=== PATIENT | female | born 1950 | race Caucasian/White ===

== ENCOUNTER 2016-06-24 20:10 | Emergency (ER) | payer MEDICARE, OTHER ==
[2016-06-24 20:51] VITALS: O2SAT 96
[2016-06-24] MEDS ORDERED: SODIUM CHLORIDE 0.9% 1000ML 1,000 ML IVS ONE (20:55)
[2016-06-24] MEDS ORDERED: LIDOCAINE VIS-MYLANTA 30 ML UD PO ONE (20:56)
[2016-06-24] MEDS ORDERED: ONDANSETRON ODT 8 MG TAB SL SCH (21:00)
--- NOTE | 2016-06-24 21:25 | RAD ---
EXAM: Abdomen Series CLINICAL INDICATION: 66-year-old female with nausea and vomiting. TECHNIQUE:Single view, PA chest was obtained.Two views of the abdomen were obtained in upright and supine positioning. COMPARISON: None. FINDINGS: Chest: Unremarkable cardiac and mediastinal silhouette. Heart size is normal. Lungs are clear without focal opacity, pneumothorax or pleural effusions. The visualized bones reveal degenerative change. Abdomen:Gas is seen within normal caliber small and large bowel. Few nonspecific central gas-filled small bowel loops. No free air is identified.There are no abnormal calcifications. Calcification within the pelvis suggestive of phleboliths. The osseous structures revealed degenerative change.The lung bases are clear. IMPRESSION:1. No acute cardiopulmonary abnormalities.2. Nonspecific abdominal bowel gas pattern. Electronically signed by: Gisella Christianson MD 06/24/2016 9:24 PM FIRE ENGINE OPERATOR
[2016-06-24] MEDS ORDERED: POTASSIUM CHLORIDE ELIXIR 20 MEQ/15 ML UD PO ONE (21:26)
[2016-06-24] MEDS ORDERED: SOTALOL 80 MG TAB PO ONE (21:35)
[2016-06-24] MEDS ORDERED: diltiaZEM HCL CD 180 MG CAP PO ONE (21:36)
[2016-06-24] MEDS ORDERED: DIPHENOXYLATE HCL/ATROPINE 2.5 MG TAB PO ONE ×2 (22:30→22:34)
--- NOTE | 2016-06-24 23:37 | ED.PDOC ---
History of Present Illness - General Chief Complaint: Abdominal Pain Stated Complaint: Abdominal pain Time Seen by Provider: 06/24/16 20:18 Source: patient Exam Limitations: no limitations - History of Present Illness Initial Comments: The patient is a 66-year-old female presenting to the emergency room secondary to nausea and vomiting for the last 24 hours along with several episodes of diarrhea. No blood in either and no bile in the vomitus. Questionable low-grade fevers. Mild to moderate abdominal cramping. No syncope or near-syncope. No chest pain. No rash. Timing/Duration: 24 hours Severity: moderate Improving Factors: medication Worsening Factors: nothing Associated Symptoms: loss of appetite, malaise, nausea/vomiting Allergies/Adverse Reactions: Allergies Sulfa Antibiotics Allergy (Verified 12/14/13 00:38) Home Medications: Ambulatory Orders Glipizide 10 mg PO BID 12/14/13 Hydrochlorothiazide 25 mg PO DAILY 12/14/13 Levothyroxine Sodium 75 mg PO DAILY 12/14/13 Metformin HCl 1,000 mg PO BID 12/14/13 Aspirin [Aspirin Adult Low Dose] 81 mg PO DAILY 06/24/16 Calcium 600 mg PO DAILY 06/24/16 Linagliptin [Tradjenta] 0 mg PO QD 06/24/16 Losartan Potassium 50 mg PO DAILY 06/24/16 Multiple Vitamins W/ Minerals [Centrum Silver] 1 tab PO DAILY 06/24/16 Ondansetron [Zofran Odt] 4 mg PO Q4H PRN #10 tab 06/24/16 Review of Systems - Review of Systems Constitutional: States: malaise EENTM: States: no symptoms reported Respiratory: States: no symptoms reported Cardiology: States: no symptoms reported Gastrointestinal/Abdominal: States: abdominal pain, diarrhea, nausea, vomiting Genitourinary: States: no symptoms reported Musculoskeletal: States: no symptoms reported Skin: States: no symptoms reported Neurological: States: no symptoms reported All other Systems: No Change from Baseline Past Medical History (General) - Patient Medical History Hx Seizures: No Hx Stroke: No Hx Dementia: No Hx Asthma: No Hx of COPD: No Hx Cardiac Disorders: No Hx Congestive Heart Failure: No Hx Pacemaker: No Hx Hypertension: No Hx Thyroid Disease: Yes Hx Diabetes: Yes Hx Gastroesophageal Reflux: No Hx Renal Disease: Yes - Chronic renal disease Hx Cancer: No Hx of HIV: No Hx Hepatitis C: No Hx MRSA: No Surgical History: appendectomy, cholecystectomy, Hysterectomy - Vaccination History Hx Tetanus, Diphtheria Vaccination: Yes Hx Influenza Vaccination: Yes Hx Pneumococcal Vaccination: Yes Immunizations Up to Date: Yes - Social History Hx Tobacco Use: No Hx Alcohol Use: No Hx Substance Use: No Hx Substance Use Treatment: No Hx Depression: No - Activities of Daily Living Hospice Agency (if applicable):: None - Female History Patient is a Female of Child Bearing Age (10 -59 yrs old): No Family Medical History - Family History Mother Family History: Unknown Physical Exam - Physical Exam General Appearance: Alert, No apparent distress Eye Exam: bilateral normal Ears, Nose, Throat: normal ENT inspection, normal pharynx Neck: non-tender, full range of motion, supple, normal inspection Respiratory: chest non-tender, lungs clear, normal breath sounds, no respiratory distress, no accessory muscle use Cardiovascular/Chest: normal peripheral pulses, regular rate, rhythm, no edema Peripheral Pulses: radial,right: 2+, radial,left: 2+ Gastrointestinal/Abdominal: non tender, soft Rectal Exam: deferred Back Exam: normal inspection, no CVA tenderness, no vertebral tenderness Extremity: normal range of motion, non-tender, normal inspection, no pedal edema , normal capillary refill Neurologic: alert, normal mood/affect, oriented x 3 Skin Exam: normal color Comments: Vital Signs - 24 hr 06/24/16 20:45 Temperature 98.1 F Pulse Rate [ 84 Right Radial] Respiratory 20 Rate Blood Pressure 153/92 [Left Arm] O2 Sat by Pulse 96 Oximetry Progress - Progress Progress: 06/24/16 23:38 the patient is a 66-year-old female presenting to the emergency room with symptoms and clinical picture consistent with gastroenteritis likely of viral origin. The patient was rehydrated for mild to moderate dehydration with a liter of saline. Laboratory work is reassuring as is the x-ray. She has responded well to Zofran. She will be written for a prescription for Zofran to help control any future nausea and vomiting. She needs to keep herself well hydrated. She needs to return to the emergency room for any acute worsening. She needs to follow up with her primary care doctor before the weekend otherwise. She does have some mild hypokalemia and was given a dose of potassium elixir here today. This does need to be followed over the coming weeks. she has been instructed to take an additional dose of potassium a day with food over the next week. 1 tablet of Imodium can be used daily if needed to control diarrhea. Avoid constipation. We were unable to obtain a urinalysis here today. One should be performed at her primary care doctor's office at the follow-up appointment. She is not currently having urinary symptoms. 06/24/16 23:42 - Results/Orders Results/Orders: 06/24/16 21:00 Ondansetron Odt [Zofran ODT] 4 mg SL ONCE 06/24/16 22:26 UA [URINALYSIS] Stat Laboratory Results - last 24 hr 06/24/16 21:05 WBC 4.7 L RBC 4.98 Hgb 14.2 Hct 43.0 MCV 86.3 MCH 28.6 MCHC 33.2 RDW 15.2 H Plt Count 183 MPV 7.0 L Absolute Neuts (auto) 3.50 Absolute Lymphs (auto) 0.70 L Absolute Monos (auto) 0.50 Absolute Eos (auto) 0.00 Absolute Basos (auto) 0.00 Neutrophils % 74.6 Lymphocytes % 14.8 L Monocytes % 9.8 H Eosinophils % 0.4 L Basophils % 0.4 Sodium 133 L Potassium 2.9 L Chloride 97 L Carbon Dioxide 27 Anion Gap 11.9 L BUN 19 H Creatinine 0.98 BUN/Creatinine Ratio 19.4 Random Glucose 173 H Serum Osmolality 272.8 L Calcium 8.4 Total Bilirubin 1.0 AST 40 ALT 29 Alkaline Phosphatase 64 Creatine Kinase 42 CK-MB (CK-2) 0.8 CK-MB (CK-2) % Not Reportable Troponin I < 0.02 Serum Total Protein 7.8 Albumin 3.7 Globulin 4.1 H Albumin/Globulin Ratio 0.9 L Amylase 44 Lipase 49 abdominal series appears benign. Departure - Departure Clinical Impression: Gastroenteritis, Hypokalemia, Dehydration, mild Disposition: Discharge to Home or Self Care Departure Forms: ED Discharge - Pt. Copy, Patient Portal Self Enrollment Instructions: DI for Viral Gastroenteritis -- Adult, DI for Hypokalemia Diet: bland diet Activity: increase activity as tolerated Referrals: Ivan Rasheed MD [Primary Care Provider] - 1-5 Days Prescriptions: Ondansetron [Zofran Odt] 4 mg PO Q4H PRN #10 tab PRN Reason: Vomiting Home Medications: Ambulatory Orders Glipizide 10 mg PO BID 12/14/13 Hydrochlorothiazide 25 mg PO DAILY 12/14/13 Levothyroxine Sodium 75 mg PO DAILY 12/14/13 Metformin HCl 1,000 mg PO BID 12/14/13 Aspirin [Aspirin Adult Low Dose] 81 mg PO DAILY 06/24/16 Calcium 600 mg PO DAILY 06/24/16 Linagliptin [Tradjenta] 0 mg PO QD 06/24/16 Losartan Potassium 50 mg PO DAILY 06/24/16 Multiple Vitamins W/ Minerals [Centrum Silver] 1 tab PO DAILY 06/24/16 Ondansetron [Zofran Odt] 4 mg PO Q4H PRN #10 tab 06/24/16 Additional Instructions: the patient is a 66-year-old female presenting to the emergency room with symptoms and clinical picture consistent with gastroenteritis likely of viral origin. The patient was rehydrated for mild to moderate dehydration with a liter of saline. Laboratory work is reassuring as is the x-ray. She has responded well to Zofran. She will be written for a prescription for Zofran to help control any future nausea and vomiting. She needs to keep herself well hydrated. She needs to return to the emergency room for any acute worsening. She needs to follow up with her primary care doctor before the weekend otherwise. She does have some mild hypokalemia and was given a dose of potassium elixir here today. This does need to be followed over the coming weeks. she has been instructed to take an additional dose of potassium a day with food over the next week. 1 tablet of Imodium can be used daily if needed to control diarrhea. Avoid constipation. We were unable to obtain a urinalysis here today. One should be performed at her primary care doctor's office at the follow-up appointment. She is not currently having urinary symptoms.
[2016-06-24] MEDS ORDERED: cefTRIAXone SODIUM 1 GM in SODIUM CHL 0.9% 50ML MIN-BAG+ 50 ML IVPB ONE (23:59)
[2016-06-25] MEDS ORDERED: cefTRIAXone SODIUM 1 GM VIAL ONE (00:03)
[2016-06-25] MEDS ORDERED: SODIUM CHL 0.9% 50ML MIN-BAG+ 50 ML IVPB ONE (00:03)
[2016-06-25 00:47] VITALS: BP 132/75; TEMP 98.2
== END 2016-06-25 00:45 | disposition home or self-care (01) ==
LOC: ER 20:10
DX: K52.9 Noninfective gastroenteritis and colitis, unspecified (principal); E87.6 Hypokalemia; E86.0 Dehydration; I12.9 Hypertensive chronic kidney disease with stage 1 through stage 4 chronic kidney disease, or unspecified chronic kidney disease; E11.22 Type 2 diabetes mellitus with diabetic chronic kidney disease; N18.9 Chronic kidney disease, unspecified; Z79.899 Other long term (current) drug therapy; Z79.82 Long term (current) use of aspirin; Z88.2 Allergy status to sulfonamides
CPT/HCPCS: 36415; 74020; 80053; 81001; 82150; 82550; 82553; 83690; 84484; 85025; 87086; 87804; J0696; J7030; J7050

== ENCOUNTER → 2016-08-28 | Outpatient (CLI) | payer MEDICARE, OTHER | END | disposition home or self-care (01) | LOC: GMAB 10:23 | PROVIDERS: ATTEND Family Medicine | DX: E03.9 Hypothyroidism, unspecified (principal) ==

== ENCOUNTER → 2016-11-18 | Outpatient (CLI) | payer MEDICARE, OTHER | END | disposition home or self-care (01) | LOC: LAB.REF 06:54 | PROVIDERS: ATTEND Internal Medicine Nephrology | DX: N17.9 Acute kidney failure, unspecified (principal); I10 Essential (primary) hypertension; E11.22 Type 2 diabetes mellitus with diabetic chronic kidney disease; N39.0 Urinary tract infection, site not specified ==

== ENCOUNTER → 2016-12-19 | Outpatient (CLI) | payer MEDICARE, OTHER ==
--- NOTE | 2016-12-19 17:10 | RAD ---
EXAM DESCRIPTION: Foot,Left 3 Views CLINICAL HISTORY: 66 years, Female, FOOT PAIN COMPARISON: None TECHNIQUE: AP, lateral, and oblique views of the left foot FINDINGS: Mild hallux valgus of the great toe and degenerative changes at the metatarsal head is noted. No fracture or dislocation is seen. Calcaneal spurring is present. Degenerative spurring along the dorsum of the foot at the tarsal metatarsal articulation is evident. An accessory ossicle at the lateral margin of the cuboid is noted. No fracture or deformity is seen. IMPRESSION: Modest degenerative changes with no acute injury noted. Electronically signed by: Eben Voss MD 12/19/2016 5:09 PM CDT
== END ==
LOC: RAD 07:33
PROVIDERS: ATTEND Orthopaedic Surgery
DX: M79.672 Pain in left foot (principal)

== ENCOUNTER → 2016-12-31 | Outpatient (CLI) | payer MEDICARE, OTHER | END | disposition home or self-care (01) | LOC: GMAB 16:46 | PROVIDERS: ATTEND Family Medicine | DX: N30.00 Acute cystitis without hematuria (principal) ==

== ENCOUNTER → 2017-01-14 | Outpatient (CLI) | payer MEDICARE, OTHER | LOC: GMAB 14:30 | PROVIDERS: ATTEND Family Medicine | DX: N30.00 Acute cystitis without hematuria (principal) ==

== ENCOUNTER → 2017-02-24 | Outpatient (CLI) | payer MEDICARE, OTHER ==
--- NOTE | 2017-02-24 11:33 | RAD ---
EXAM DESCRIPTION: Hip,Right 2 Views CLINICAL HISTORY: 67 years Female, PAIN COMPARISON: None. FINDINGS: 2 views of the right hip show no acute fracture or malalignment. The right hip joint space is fairly well-maintained. Degenerative calcifications arise from the posterior margin of the right acetabulum and also the greater trochanter. Enthesophytes arise from the right iliac crest. There are degenerative changes in the lower lumbar spine at several levels. IMPRESSION: Degenerative changes in the lumbar spine and right hip, but no acute right hip abnormality. Electronically signed by: Ghulam Hinkle MD 02/24/2017 11:32 AM CDT
--- NOTE | 2017-02-24 11:33 | RAD ---
EXAM DESCRIPTION: Pelvis CLINICAL HISTORY: 67 years Female, PAIN COMPARISON: None. FINDINGS: Single AP view the pelvis shows no displaced pelvic fracture. The hip and sacroiliac joint spaces are fairly well-maintained. Degenerative calcifications arise from the iliac crests and greater trochanters. There are mild degenerative changes in the lumbar spine at L4-5. IMPRESSION: Degenerative changes in the pelvis and lower lumbar spine, but no acute abnormality. Electronically signed by: Ghulam Hinkle MD 02/24/2017 11:31 AM CDT
== END | disposition home or self-care (01) ==
LOC: RAD 07:43
PROVIDERS: ATTEND Orthopaedic Surgery
DX: M25.551 Pain in right hip (principal)

== ENCOUNTER → 2017-05-22 | Outpatient (CLI) | payer MEDICARE, OTHER | END | disposition home or self-care (01) | LOC: GMAJS 11:03 | PROVIDERS: ATTEND Physician Assistant | DX: N30.00 Acute cystitis without hematuria (principal) ==

== ENCOUNTER → 2017-09-04 | Outpatient (CLI) | payer MEDICARE, OTHER | LOC: GMAB 10:26 | PROVIDERS: ATTEND Family Medicine | DX: E03.9 Hypothyroidism, unspecified (principal) ==

== ENCOUNTER → 2017-09-11 | Outpatient (CLI) | payer MEDICARE, OTHER ==
--- NOTE | 2017-09-11 15:48 | RAD ---
EXAM DESCRIPTION: Foot,Left 3 Views CLINICAL HISTORY: 67 years, Female, FOOT PAIN COMPARISON: Previous study December 19, 2016 TECHNIQUE: AP, lateral, and oblique views of the left foot FINDINGS: Metatarsus primus varus is seen with hallux valgus resulting in osseous bunion deformity. Degenerative narrowing at the first metatarsophalangeal joint with mild degenerative narrowing of the joints of toes. Sclerotic changes at the tarsometatarsal joints are consistent with degenerative changes. No definite subluxation or widening to suggest neuropathic joint. Gout might be considered with this appearance although it may similarly be degenerative. Lateral view shows no fracture of the talus or calcaneus. Large dorsal and plantar calcaneal enthesophytes are present. Degenerative spurring is seen at the dorsal midfoot. IMPRESSION: Degenerative changes as described. Electronically signed by: Tucker Tony MD 09/11/2017 3:47 PM CDT
== END ==
LOC: RAD 08:21
PROVIDERS: ATTEND Orthopaedic Surgery
DX: M79.672 Pain in left foot (principal)

== ENCOUNTER → 2017-09-12 | Outpatient (CLI) | payer MEDICARE, OTHER ==
--- NOTE | 2017-09-12 12:52 | MRI ---
MRI left foot without contrast INDICATION: Rodriguez's neuroma TECHNIQUE: Noncontrast MR imaging left foot FINDINGS: There is osteoarthrosis in the midfoot centered along the TMT joints especially second third and fourth. Minimal osteoarthrosis of the first MTP joint. There is cystic change along the bunion area first metatarsal. Lisfranc ligament complex appears intact. The marker indicating the area of symptoms is situated over the second interspace. There is mild soft tissue thickening in this area. However this is similar to the other interspaces. No well-defined neuroma is noted. There is patchy edema proximal second interspace in the interosseous region very nonspecific. No osseous destructive process or fracture. Intravenous contrast may be useful to assess for enhancement especially given the edema proximal to the second interspace in the symptomatic area reference series 701 image 23 as a small neuroma is difficult to exclude within the edema. IMPRESSION: Edema most pronounced proximal to the second interspace between the second and third metatarsals in the symptomatic area difficult to exclude underlying small neuroma consider intravenous contrast Multifocal osteoarthrosis throughout the TMT joints Small bunion with cystic change first metatarsal Electronically signed by: Rene Gunn MD 09/12/2017 12:50 PM CDT
== END ==
LOC: MRI 07:42
PROVIDERS: ATTEND Orthopaedic Surgery
DX: G57.62 Lesion of plantar nerve, left lower limb (principal); M19.072 Primary osteoarthritis, left ankle and foot; M21.612 Bunion of left foot

== ENCOUNTER → 2017-11-25 | Outpatient (CLI) | payer MEDICARE, OTHER | LOC: GMAJS 12:38 | PROVIDERS: ATTEND Physician Assistant | DX: N30.00 Acute cystitis without hematuria (principal) ==

== ENCOUNTER → 2017-12-09 | Outpatient (CLI) | payer MEDICARE, OTHER | LOC: GMAE 11:04 | PROVIDERS: ATTEND Family Medicine | DX: E03.9 Hypothyroidism, unspecified (principal) ==

== ENCOUNTER → 2018-01-14 | Outpatient (CLI) | payer MEDICARE, OTHER | LOC: GMATM 17:30 | PROVIDERS: ATTEND Nurse Practitioner Family | DX: D51.9 Vitamin B12 deficiency anemia, unspecified (principal); E55.9 Vitamin D deficiency, unspecified; N39.0 Urinary tract infection, site not specified; R53.83 Other fatigue ==

== ENCOUNTER → 2018-01-16 | Outpatient (CLI) | payer MEDICARE, OTHER ==
--- NOTE | 2018-01-16 08:28 | RAD ---
EXAM DESCRIPTION: Hip,Right 2 Views (accession [id number]), Pelvis (accession [id number]) CLINICAL HISTORY: 67 years, Female, PAIN IN RIGHT HIP COMPARISON: Previous x-rays of the pelvis and right hip from February 24, 2017 TECHNIQUE: AP and frog leg lateral views of the hip FINDINGS: Pelvis Bones of the pelvic ring appear intact. Degenerative changes are seen in the lower L-spine and at the SI joints. Mild medial hip joint space narrowing bilaterally. Enthesopathy is seen at the greater trochanter of the proximal left femur more than the right. No femoral fracture or hip dislocation. Right hip No fracture. No dislocation. Normal bony mineralization. Mild medial hip joint space narrowing. Mild spurring at the lateral acetabulum and at the medial femoral head neck junction. Compared to previous study February 24, 2017, no change is seen. IMPRESSION: Negative for fracture or dislocation. Electronically signed by: Tucker Tony MD 01/16/2018 8:27 AM CDT
--- NOTE | 2018-01-16 08:28 | RAD ---
EXAM DESCRIPTION: Hip,Right 2 Views (accession [id number]), Pelvis (accession [id number]) CLINICAL HISTORY: 67 years, Female, PAIN IN RIGHT HIP COMPARISON: Previous x-rays of the pelvis and right hip from February 24, 2017 TECHNIQUE: AP and frog leg lateral views of the hip FINDINGS: Pelvis Bones of the pelvic ring appear intact. Degenerative changes are seen in the lower L-spine and at the SI joints. Mild medial hip joint space narrowing bilaterally. Enthesopathy is seen at the greater trochanter of the proximal left femur more than the right. No femoral fracture or hip dislocation. Right hip No fracture. No dislocation. Normal bony mineralization. Mild medial hip joint space narrowing. Mild spurring at the lateral acetabulum and at the medial femoral head neck junction. Compared to previous study February 24, 2017, no change is seen. IMPRESSION: Negative for fracture or dislocation. Electronically signed by: Tucker Tony MD 01/16/2018 8:27 AM CDT
--- NOTE | 2018-01-16 15:22 | MRI ---
EXAM DESCRIPTION: Hip,Right CLINICAL HISTORY: 67 years Female, PAIN IN RIGHT HIP COMPARISON: None. TECHNIQUE: Noncontrast multiplanar multisequence magnetic resonance imaging of the right hip was performed. FINDINGS: Cam dominant femoral acetabular impingement morphology of the femoral head neck junction is noted with the alpha angle approaching 56 degrees. The center edge angle is upper limits of normal measuring approximately 38 degrees. No fibrocystic changes identified along the femoral junction. High-grade full-thickness tearing through the base of the anterior superior acetabular labrum is present at the 1:00 to 2:00 position. No paralabral cyst is demonstrated. Subchondral cystlike formation is noted within the central weightbearing surface of the acetabulum indicating high-grade chondrosis/early osteoarthritis. Intermediate grade gluteus and minimus and medius tendon tears are present at the insertion site. Large right greater than left bilateral trochanteric bursal fluid collections. Mild inflammatory signal seen surrounding the right greater trochanteric bursa. Iliopsoas and rectus femoris exhibit normal thickness and signal intensity. The conjoined hamstring tendons are intact. The piriformis and quadratus femoris are intact. Moderate size joint effusion of the hip is present. No hip osteonecrosis. IMPRESSION: Right greater than left trochanteric bursitis. Cam dominant femoral acetabular impingement morphology. Anterior superior acetabular labral tear. Small focus of advanced chondrosis/early osteoarthritis central weightbearing surface of the acetabulum. Intermediate grade tendinosis gluteus medius and minimus. Moderate size joint effusion. Electronically signed by: Xander Harper MD 01/16/2018 3:21 PM CDT
== END ==
LOC: RAD 07:51
PROVIDERS: ATTEND Orthopaedic Surgery
DX: M70.61 Trochanteric bursitis, right hip (principal); S73.191A Other sprain of right hip, initial encounter; M16.11 Unilateral primary osteoarthritis, right hip; M25.451 Effusion, right hip

== ENCOUNTER → 2018-02-03 | Outpatient (CLI) | payer MEDICARE, OTHER | LOC: GMAE 14:56 | PROVIDERS: ATTEND Family Medicine | DX: N30.00 Acute cystitis without hematuria (principal) ==

== ENCOUNTER → 2018-02-13 | Outpatient (CLI) | payer MEDICARE, OTHER | LOC: LAB.O 07:20 | PROVIDERS: ATTEND Internal Medicine Endocrinology, Diabetes & Metabolism | DX: E11.65 Type 2 diabetes mellitus with hyperglycemia (principal); E78.5 Hyperlipidemia, unspecified; I10 Essential (primary) hypertension ==

== ENCOUNTER 2018-02-15 20:46 | Emergency (ER) | payer MEDICARE, OTHER ==
[2018-02-15 21:02] VITALS: O2SAT 98
--- NOTE | 2018-02-15 21:13 | ED.PDOC ---
History of Present Illness - General Chief Complaint: Problem Stated Complaint: urinary burning, frequency Time Seen by Provider: 02/15/18 20:59 Source: patient Exam Limitations: no limitations - History of Present Illness Initial Comments: Edyta Wheeler 68 y/o female came to ER with painful urination which started this afternoon.Denies fever,nausea,vomiting or chills.Stated she has DM2 and HTN. Timing/Duration: this afternoon Quality: burning Onset Location: suprapubic Radiation: none Activites at Onset: none Prior abdominal problems: none Sexual intercourse history: not active Improving Factors: nothing Worsening Factors: nothing Associated Symptoms: urinary frequency Allergies/Adverse Reactions: Allergies Codeine Allergy (Verified 02/15/18 21:03) Sulfa Antibiotics Allergy (Verified 12/14/13 00:38) Home Medications: Ambulatory Orders Glipizide 10 mg PO BID 12/14/13 Hydrochlorothiazide 25 mg PO DAILY 12/14/13 Levothyroxine Sodium 75 mg PO DAILY 12/14/13 Metformin HCl 1,000 mg PO BID 12/14/13 Aspirin [Aspirin Adult Low Dose] 81 mg PO DAILY 06/24/16 Calcium 600 mg PO DAILY 06/24/16 Linagliptin [Tradjenta] 0 mg PO QD 06/24/16 Losartan Potassium 50 mg PO DAILY 06/24/16 Multiple Vitamins W/ Minerals [Centrum Silver] 1 tab PO DAILY 06/24/16 Ondansetron [Zofran Odt] 4 mg PO Q4H PRN #10 tab 06/24/16 Ciprofloxacin [Cipro] 500 mg PO BID #10 tab 06/25/16 Nitrofurantoin Monohydrate Mac [Macrobid] 100 mg PO BID 10 Days #20 capsule 11/26 Phenazopyridine HCl [Pyridium] 200 mg PO BID PRN #14 tab 02/15/18 Review of Systems - Review of Systems Constitutional: States: no symptoms reported EENTM: States: no symptoms reported Respiratory: States: no symptoms reported Cardiology: States: no symptoms reported Gastrointestinal/Abdominal: States: no symptoms reported Genitourinary: States: see HPI Past Medical History (General) - Patient Medical History Hx Seizures: No Hx Stroke: No Hx Dementia: No Hx Asthma: No Hx of COPD: No Hx Cardiac Disorders: No Hx Congestive Heart Failure: No Hx Pacemaker: No Hx Hypertension: Yes Hx Thyroid Disease: Yes Hx Diabetes: Yes Hx Gastroesophageal Reflux: No Hx Renal Disease: Yes - Chronic renal disease Hx Cancer: No Hx of HIV: No Hx Hepatitis C: No Hx MRSA: No Surgical History: appendectomy, cholecystectomy, other - hysterectomy - Vaccination History Hx Tetanus, Diphtheria Vaccination: Yes Hx Influenza Vaccination: Yes Hx Pneumococcal Vaccination: Yes - Social History Hx Tobacco Use: No Hx Alcohol Use: No Hx Substance Use: No Hx Substance Use Treatment: No Hx Depression: No Hx Physical Abuse: No Hx Emotional Abuse: No - Female History Patient is a Female of Child Bearing Age (10 -59 yrs old): No - Triage Comment ED Triage Comment: urinary frequency and burning Family Medical History - Family History Mother Family History: Unknown Hx Family Stroke: Yes - mom Hx Cardiac Disease: Yes - dad Hx Family Diabetes: Yes - son Hx Family Cancer: Yes - breast-sister Physical Exam - Physical Exam General Appearance: Alert, Comfortable, No apparent distress Eyes, Ears, Nose, Throat Exam: normal ENT inspection Neck: non-tender, full range of motion, supple, normal inspection, carotid bruit - NONE Cardiovascular/Respiratory: regular rate, rhythm, no M/R/G, normal peripheral pulses, no JVD, normal breath sounds Gastrointestinal/Abdominal: normal bowel sounds, non tender, soft, no organomegaly Pelvic Exam: external exam normal, other - no vaginal erythema or tenderness Back Exam: no CVA tenderness, no vertebral tenderness Extremity: no pedal edema, no calf tenderness Neurologic: alert, oriented x 3 Progress - Progress Progress: 02/15/18 21:16 Vital Signs - 8 hr 02/15/18 21:00 Temperature 98.2 F Pulse Rate [ 84 Right] Respiratory 20 Rate Blood Pressure 157/84 [Right Arm] O2 Sat by Pulse 98 Oximetry - Results/Orders Results/Orders: 02/15/18 21:03 URINE CULTURE W/COLONY COUNT Stat 02/15/18 21:20 URINE CULTURE W/COLONY COUNT Stat Laboratory Results - last 24 hr 02/15/18 21:03 Urine Color Yellow Urine Appearance Cloudy Urine pH 6.0 Ur Specific [place] 1.015 Urine Protein 30 Urine Glucose (UA) Negative Urine Ketones Negative Urine Blood Moderate H Urine Nitrite Negative Urine Bilirubin Negative Urine Urobilinogen 0.2 Ur Leukocyte Esterase Moderate H Urine RBC 30-40 H Urine WBC Tntc H Ur Epithelial Cells 1-3 Urine Bacteria 3+ H Departure - Departure Clinical Impression: Dysuria, Cystitis Time of Disposition: 21:24 Disposition: Discharge to Home or Self Care Departure Forms: ED Discharge - Pt. Copy, Patient Portal Self Enrollment Instructions: Urinary Tract Infections in Adults, Acute Cystitis (DC), Bladder Irritants Referrals: SARBJIT BORDEN MD [Primary Care Provider] - 1-2 Weeks Prescriptions: Nitrofurantoin Monohydrate Mac [Macrobid] 100 mg PO BID 10 Days #20 capsule Phenazopyridine HCl [Pyridium] 200 mg PO BID PRN #14 tab PRN Reason: Bladder Pain Or Spasms Home Medications: Ambulatory Orders Glipizide 10 mg PO BID 12/14/13 Hydrochlorothiazide 25 mg PO DAILY 12/14/13 Levothyroxine Sodium 75 mg PO DAILY 12/14/13 Metformin HCl 1,000 mg PO BID 12/14/13 Aspirin [Aspirin Adult Low Dose] 81 mg PO DAILY 06/24/16 Calcium 600 mg PO DAILY 06/24/16 Linagliptin [Tradjenta] 0 mg PO QD 06/24/16 Losartan Potassium 50 mg PO DAILY 06/24/16 Multiple Vitamins W/ Minerals [Centrum Silver] 1 tab PO DAILY 06/24/16 Ondansetron [Zofran Odt] 4 mg PO Q4H PRN #10 tab 06/24/16 Ciprofloxacin [Cipro] 500 mg PO BID #10 tab 06/25/16 Nitrofurantoin Monohydrate Mac [Macrobid] 100 mg PO BID 10 Days #20 capsule 11/26 Phenazopyridine HCl [Pyridium] 200 mg PO BID PRN #14 tab 02/15/18 Additional Instructions: Follow up with primary Md 17 February 2018 as needed;Return to ER as needed
[2018-02-15] MEDS ORDERED: PHENAZOPYRIDINE HCL 200 MG TAB PO ONE (21:20)
[2018-02-15] MEDS ORDERED: NITROFURANTOIN MONO (ER DISP) 100 MG CAP PO ONE (21:20)
[2018-02-15] MEDS ORDERED: traMADol HCL 50 MG (ER DISP) # 6 TABS PO ONE (21:20)
[2018-02-15] MEDS ORDERED: NITROFURANTOIN MONOHYDRATE MAC 100 MG CAP PO ONE (21:20)
[2018-02-15 21:55] VITALS: BP 148/79; TEMP 98.6
== END 2018-02-15 21:55 | disposition home or self-care (01) ==
LOC: ER 20:46
DX: N30.90 Cystitis, unspecified without hematuria (principal); E11.22 Type 2 diabetes mellitus with diabetic chronic kidney disease; I12.9 Hypertensive chronic kidney disease with stage 1 through stage 4 chronic kidney disease, or unspecified chronic kidney disease; N18.9 Chronic kidney disease, unspecified; E07.9 Disorder of thyroid, unspecified; Z79.84 Long term (current) use of oral hypoglycemic drugs; Z79.899 Other long term (current) drug therapy; Z79.82 Long term (current) use of aspirin; Z88.5 Allergy status to narcotic agent; Z88.2 Allergy status to sulfonamides

== ENCOUNTER → 2018-03-28 | Outpatient (CLI) | payer MEDICARE, OTHER | LOC: GMATM 13:49 | PROVIDERS: ATTEND Nurse Practitioner Family | DX: N39.0 Urinary tract infection, site not specified (principal) ==

== ENCOUNTER → 2018-08-24 | Outpatient (CLI) | payer MEDICARE, OTHER | LOC: LAB.O 07:12 | PROVIDERS: ATTEND Internal Medicine Endocrinology, Diabetes & Metabolism | DX: E11.65 Type 2 diabetes mellitus with hyperglycemia (principal); E78.5 Hyperlipidemia, unspecified; I10 Essential (primary) hypertension ==

== ENCOUNTER → 2018-10-12 | Outpatient (CLI) | payer MEDICARE, OTHER | LOC: GMAE 10:38 | PROVIDERS: ATTEND Family Medicine | DX: E03.9 Hypothyroidism, unspecified (principal); I10 Essential (primary) hypertension; E11.8 Type 2 diabetes mellitus with unspecified complications ==

== ENCOUNTER → 2018-12-28 | Outpatient (CLI) | payer MEDICARE, OTHER | LOC: GMATM 16:58 | PROVIDERS: ATTEND Nurse Practitioner Family | DX: R42 Dizziness and giddiness (principal) ==

== ENCOUNTER → 2018-12-31 | Outpatient (CLI) | payer MEDICARE, OTHER ==
--- NOTE | 2018-12-31 13:34 | CT ---
EXAM DESCRIPTION: Head CT without contrast CLINICAL HISTORY: DIZZINESS COMPARISON: Previous MRI of the brain from October 25, 2013 TECHNIQUE: Noncontrast head CT was performed with routine protocol. FINDINGS: Normal ware-white matter differentiation. Ventricles and sulci are normal for age. No high density hemorrhage, focal edema or shift of the midline. No sulcal effacement. Normal orbital contents. Basilar cisterns appear clear. Intact calvarium with no fracture or lytic lesion. Normal aeration of tympanic cavities and mastoid air cells. No fluid levels in the paranasal sinuses. Skull base appears intact. Symmetrical internal auditory canals. IMPRESSION: No acute intracranial pathologic process. This exam was performed according to our departmental dose-optimization program, which includes automated exposure control, adjustment of the mA and/or kV according to patient size and/or use of iterative reconstruction technique. Total DLP equals 752.48 mGycm. Electronically signed by: Tucker Tony MD 12/31/2018 1:33 PM CDT
== END ==
LOC: CT 13:31
PROVIDERS: ATTEND Nurse Practitioner Family
DX: R42 Dizziness and giddiness (principal); E11.649 Type 2 diabetes mellitus with hypoglycemia without coma

== ENCOUNTER → 2019-01-18 | Outpatient (CLI) | payer MEDICARE, OTHER | LOC: GMAE 10:31 | PROVIDERS: ATTEND Family Medicine | DX: E03.9 Hypothyroidism, unspecified (principal); E11.649 Type 2 diabetes mellitus with hypoglycemia without coma ==

== ENCOUNTER 2019-09-22 12:01 | Inpatient (IN) | payer MEDICARE, OTHER ==
--- NOTE | 2019-09-22 12:14 | ED.PDOC ---
History of Present Illness - General Chief Complaint: General Stated Complaint: vomiting, syncope 2 days ago Time Seen by Provider: 09/22/19 12:07 Additional Information: This is a 69-year-old female, with hypertension and diabetes, but she presented with vomiting Patient stated that yesterday she started vomiting and then she had an episode when she lost consciousness passed out fell backwards hitting the back of her head and ever since then she is has some lower back pain. Patient stated that she woke up this morning, had breakfast and then started having vomiting, She arrived privately looks pale, complaining of some midepigastric discomfort Denies any chest pain denies any fever chills patient lives by herself no known sick contacts Previous surgeries include gallbladder This syncope episode happened on Friday, and she was evaluated by EMS, but patient was not seen by physician or evaluate by Dr. Patient stated that the vomiting started before she had a syncope episode - History of Present Illness Timing/Duration: - Friday Improving Factors: nothing Worsening Factors: nothing Associated Symptoms: nausea/vomiting Allergies/Adverse Reactions: Allergies Codeine Allergy (Verified 02/15/18 21:03) Sulfa Antibiotics Allergy (Verified 12/14/13 00:38) Home Medications: Ambulatory Orders Glipizide 10 mg PO BID 12/14/13 Hydrochlorothiazide 12.5 mg PO DAILY 12/14/13 Aspirin [Aspirin Adult Low Dose] 81 mg PO DAILY 06/24/16 Calcium 600 mg PO DAILY 06/24/16 Losartan Potassium 50 mg PO DAILY 06/24/16 Multiple Vitamins W/ Minerals [Centrum Silver] 1 tab PO DAILY 06/24/16 Insulin Glargine [Toujeo Solostar] 40 unit SC BEDTIME 09/22/19 Insulin Regular (Human) [Novolin R] 16 unit SUBCU NOON 09/22/19 Insulin Regular (Human) [Novolin R] 16 units SUBCU .1600 09/22/19 Insulin Regular (Human) [Novolin R] 20 unit SUBCU QAM 09/22/19 Levothyroxine Sodium 75 mcg PO DAILY 09/22/19 Trazodone HCl [Trazodone Hydrochloride] 50 mg PO DAILY 09/22/19 Review of Systems - Review of Systems Constitutional: States: no symptoms reported EENTM: States: no symptoms reported Respiratory: States: no symptoms reported Cardiology: States: no symptoms reported Gastrointestinal/Abdominal: States: nausea, vomiting Genitourinary: States: no symptoms reported Musculoskeletal: States: no symptoms reported Skin: States: no symptoms reported Neurological: States: no symptoms reported Endocrine: States: no symptoms reported Hematologic/Lymphatic: States: no symptoms reported Past Medical History (General) - Patient Medical History Hx Seizures: No Hx Stroke: No Hx Dementia: No Hx Asthma: No Hx of COPD: No Hx Cardiac Disorders: No Hx Congestive Heart Failure: No Hx Pacemaker: No Hx Hypertension: Yes Hx Thyroid Disease: Yes Hx Diabetes: Yes Hx Gastroesophageal Reflux: No Hx Renal Disease: Yes - Chronic renal disease Hx Cancer: No Hx of HIV: No Hx Hepatitis C: No Hx MRSA: No - Vaccination History Hx Tetanus, Diphtheria Vaccination: Yes Hx Influenza Vaccination: Yes Hx Pneumococcal Vaccination: Yes - Social History Hx Tobacco Use: No Hx Alcohol Use: No Hx Substance Use: No Hx Substance Use Treatment: No Hx Depression: No Hx Physical Abuse: No Hx Emotional Abuse: No Family Medical History - Family History Mother Family History: Unknown Hx Family Stroke: Yes - mom Hx Cardiac Disease: Yes - dad Hx Family Diabetes: Yes - son Hx Family Cancer: Yes - breast-sister Physical Exam - Physical Exam General Appearance: Other - Patient looks pale, dry lips, but alert and oriented Eye Exam: bilateral normal Ears, Nose, Throat: hearing grossly normal Neck: non-tender, full range of motion, supple, normal inspection Respiratory: chest non-tender, lungs clear, normal breath sounds, no respiratory distress, no accessory muscle use Cardiovascular/Chest: normal peripheral pulses, regular rate, rhythm, no edema, no gallop, no JVD, no murmur Peripheral Pulses: radial,right: 2+, radial,left: 2+ Gastrointestinal/Abdominal: normal bowel sounds, other - Epigastric pain no acute abdomen on physical exam no right lower quadrant pain Back Exam: normal inspection, vertebral tenderness, other - Lower midline lumbar spine tenderness without step-off Extremity: normal range of motion, non-tender, normal inspection, no pedal edema Neurologic: editor map II-XII nml as tested, no motor/sensory deficits, alert, normal mood/affect, oriented x 3 Skin Exam: pallor Progress - Progress Progress: 09/22/19 13:40 When I was reevaluating patient's blood work and noticed that she did have some evidence of bandemia plus elevated white blood cell count, that may be concerning for SIRS, so I ordered lactic acid.Patient lactic acid came back elevated, but chest x-ray did not show any signs of pneumonia no bilateral pneumonia no infiltrates, we do not have a source of infection as of yet The patient does not have any meningeal signs no nuchal rigidity does not have any neurological deficit no chest pain and no shortness of breath CT lumbar spine IMPRESSION: Negative for fracture or traumatic subluxation. Chest Xray Moderate lung expansion. No large contusion or infiltrate. No pleural effusion or pneumothorax. Cardiopulmonary vascular structures and mediastinal silhouette are unremarkable. Numerous pacing leads overlying the chest. 09/22/19 14:[address] 1. No intra-axial hemorrhage, no mass effect, no midline shift. Minimal periventricular low-density is stable since the prior study. Extra-axial spaces are stable with no hemorrhage. 2. CT scans are insensitive for detecting small CVAs in the first 24 hours after onset. Evaluation of the brain stem is also limited. If symptoms persist, consider NON-EMERGENT MRI scan of the brain with diffusion imaging 09/22/19 14:25 MPRESSION: Fluid-filled prominent small bowel and colon suggesting diarrheal illness. 09/22/19 14:28 I did order a liter of normal saline, patient abdominal pelvic CT did not show any perforations, no small bowel obstruction, no inflammatory processes no diverticulitis, I suspect the patient altered lab values are not due to sepsis, I suspect related lactic acid altered kidney function probably due to dehydration, but the patient syncope was also caused by dehydration given the the vomiting started before she passed out and hit her head, CT did not show any evidence of epidural subdural intracranial hemorrhage 09/22/19 14:35 I spoke with the hospitalist, and the hospitalist told me that 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 and that she used to get fluids all the time, which forcing the idea of the theory.I think that all of the patient's symptoms can be explained due to dehydration and gastroenteritis - EKG/XRAY/CT Comments: EKG showed heart rate of 93 no acute ischemic changes Departure - Departure Clinical Impression: Gastroenteritis Nausea & vomiting Qualifiers: Vomiting type: unspecified Vomiting Intractability: unspecified Qualified Code(s): R11.2 - Nausea with vomiting, unspecified Diarrhea Qualifiers: Diarrhea type: unspecified type Qualified Code(s): R19.7 - Diarrhea, unspecified Disposition: Admit Patient Condition: Fair Departure Forms: ED Discharge - Pt. Copy, Patient Portal Self Enrollment Referrals: SARBJIT BORDEN MD [Primary Care Provider] - 1-2 Weeks Home Medications: Ambulatory Orders Glipizide 10 mg PO BID 12/14/13 Hydrochlorothiazide 12.5 mg PO DAILY 12/14/13 Aspirin [Aspirin Adult Low Dose] 81 mg PO DAILY 06/24/16 Calcium 600 mg PO DAILY 06/24/16 Losartan Potassium 50 mg PO DAILY 06/24/16 Multiple Vitamins W/ Minerals [Centrum Silver] 1 tab PO DAILY 06/24/16 Insulin Glargine [Toujeo Solostar] 40 unit SC BEDTIME 09/22/19 Insulin Regular (Human) [Novolin R] 16 unit SUBCU NOON 09/22/19 Insulin Regular (Human) [Novolin R] 16 units SUBCU .1600 09/22/19 Insulin Regular (Human) [Novolin R] 20 unit SUBCU QAM 09/22/19 Levothyroxine Sodium 75 mcg PO DAILY 09/22/19 Trazodone HCl [Trazodone Hydrochloride] 50 mg PO DAILY 09/22/19 Decision To Admit - Decistion To Admit Decision to Admit Reason: Admit from ER Decision to Admit Date: 09/22/19 Decision to Admit Time: 14:37
[2019-09-22] MEDS ORDERED: ONDANSETRON INJ 4 MG/2 ML VIAL IV ONE (12:33)
[2019-09-22] MEDS ORDERED: SODIUM CHLORIDE 0.9% 1000ML 1,000 ML ONE (12:33)
[2019-09-22] MEDS ORDERED: SODIUM CHLORIDE 0.9% 1000ML 1,000 ML IVS PRN (13:00)
--- NOTE | 2019-09-22 13:36 | CT ---
EXAM DESCRIPTION: Lumbar Spine CT CLINICAL HISTORY: 69 years, Female, fall injury COMPARISON: None TECHNIQUE: Lumbar CT with thin-section axial imaging with reconstructed MPR images reviewed as well. FINDINGS: Axial images show advanced facet degenerative changes, especially L4-5 and L5-S1 levels. At L5-S1, right paracentral chronic appearing calcified disc herniation measures 5 mm in AP dimension. Mild degenerative anterolisthesis of L4 on L5 and L5 on S1. No spondylolysis. No acute vertebral fracture. No vertebral body compressions. Degenerative disc disease at L3-4 through L5-S1. Vacuum disc phenomenon at L5-S1. Moderate posterior annular bulges at L3-4 through L5-S1 levels without significant spinal stenosis. Coronal and sagittal reformatted images are negative for fracture. Degenerative narrowing of the SI joints. Upper sacrum appears intact. Normal caliber of the aorta. No retroperitoneal hematoma. IMPRESSION: Negative for fracture or traumatic subluxation. This exam was performed according to our departmental dose-optimization program, which includes automated exposure control, adjustment of the mA and/or kV according to patient size and/or use of iterative reconstruction technique. Electronically signed by: Tucker Tony MD 09/22/2019 1:35 PM CDT
--- NOTE | 2019-09-22 13:46 | RAD ---
EXAM DESCRIPTION: Chest,1 View: CR/DR/XR. CLINICAL HISTORY: 69 years Female vomiting . Ground-level fall. COMPARISON: 2 view chest x-ray February 2019. TECHNIQUE: ONE VIEW PORTABLE. AP 1300 hours, upright position. FINDINGS: Moderate lung expansion. No large contusion or infiltrate. No pleural effusion or pneumothorax. Cardiopulmonary vascular structures and mediastinal silhouette are unremarkable. Numerous pacing leads overlying the chest. IMPRESSION: No radiographic evidence of acute cardiopulmonary disease. Electronically signed by: Sukhjinder Umaña MD 09/22/2019 1:45 PM CDT
--- NOTE | 2019-09-22 13:56 | CT ---
EXAM DESCRIPTION: Head: Computed Tomography. CLINICAL HISTORY: syncope. Ground-level fall. COMPARISON: CT scan of the lumbar spine, cervical spine, and abdomen today. Also chest x-ray. CT scan head without contrast December 2018. TECHNIQUE: Non-helical axial scans through the skull and brain, at 2.5 x 20 mm intervals, non-contrast. Sagittal and coronal 2.0 mm reconstructions. Total Exam DLP: 753 mGy-cm. This exam was performed according to our departmental dose-optimization program which includes automated exposure control, adjustment of the mA and/or kV according to patient size and/or use of iterative reconstruction technique; to reduce radiation dose to as low as reasonably achievable (ALARA). FINDINGS: No hemorrhage, no mass-effect, and no midline shift. Minimal bilateral periventricular low-density is symmetric and stable. No abnormal radiodense material in the brain parenchyma. Vascular calcifications anterior circulation; physiologic calcifications in the pineal gland and choroid plexus. No effacement or displacement of the ventricles, CSF spaces, or subdural spaces. No extra axial fluid collection or hemorrhage. No gross abnormalities of the bony calvarium. Included paranasal sinuses and mastoid air cells are well - aerated. IMPRESSION: 1. No intra-axial hemorrhage, no mass effect, no midline shift. Minimal periventricular low-density is stable since the prior study. Extra-axial spaces are stable with no hemorrhage. 2. CT scans are insensitive for detecting small CVAs in the first 24 hours after onset. Evaluation of the brain stem is also limited. If symptoms persist, consider NON-EMERGENT MRI scan of the brain with diffusion imaging. Electronically signed by: Sukhjinder Umaña MD 09/22/2019 1:54 PM CDT
[2019-09-22] MEDS ORDERED: SODIUM CHLORIDE 0.9% 1000ML 1,000 ML IVS ONE (14:08)
--- NOTE | 2019-09-22 14:08 | CT ---
EXAM DESCRIPTION: Cervical Spine: Computed Tomography. CLINICAL HISTORY: 69 years Female fall COMPARISON: CT scans head, lumbar spine, and abdomen pelvis. Also chest x-ray. TECHNIQUE: Spiral, axial 2.5 x 2.5 mm scans through the cervical spine without contrast. Coronal and sagittal 2.0 mm Reconstructions. Total Exam DLP: 319 mGy-cm. This exam was performed according to our departmental dose-optimization program which includes automated exposure control, adjustment of the mA and/or kV according to patient size and/or use of iterative reconstruction technique; to reduce radiation dose to as low as reasonably achievable (ALARA). FINDINGS: Normal bone density. No compression type vertebral body fractures. No perched or locked facets. No posttraumatic spondylolisthesis. Lateral elements and posterior elements show no sign of fracture or displacement. Atlantoaxial arthrosis and hypertrophy. Minimal joint space narrowing and atlantooccipital joints. C1-C2 facets are unremarkable bilaterally. Disc space loss and endplate spondylosis C5-6 and C6-7 with bilateral uncinate spurs narrowing the neural foramina and posterior disc osteophyte spurs narrowing the canal. Upper cervical spine is slightly kyphotic. Minimal facet joint space narrowing bilaterally especially from C5 to T1. Minimal lung visualized and unremarkable. Bilateral lymph nodes in the included soft tissues are not enlarged. Included airway is symmetric. IMPRESSION: 1. CT scan of the cervical spine showing no evidence of acute bony, spinal, joint, or soft tissue abnormality or injury. 2. Chronic joint arthrosis and cervical disc space spondylosis as noted. Electronically signed by: Sukhjinder Umaña MD 09/22/2019 2:06 PM CDT
--- NOTE | 2019-09-22 14:25 | CT ---
EXAM DESCRIPTION: Abdoment/Pelvis w/o Contrast CLINICAL HISTORY: 69 years, Female, vomiting COMPARISON: None. TECHNIQUE: CT of the abdomen and pelvis is performed according to our non contrast protocol. FINDINGS: The lung bases are clear. Mild liver surface irregularity may be scarring or cirrhotic change. Correlate with other studies. Question minimal edema around the head of the pancreas. Correlate with serum amylase and lipase. Pancreas is otherwise unremarkable. Adrenal glands appear normal. The right kidney is unremarkable. The left kidney is unremarkable. No renal stones or hydronephrosis. Small bowel loops appear prominent in caliber and fluid-filled with normal wall thickness. With a history of vomiting, gastroenteritis or partial small bowel obstruction might be considered. No focal transition point is seen and there is gradual decrease of caliber of the small bowel from the more prominent duodenum and proximal jejunum to the less prominent distal jejunum and normal caliber ileum. The terminal ileal region is normal in caliber. There is fluid in the right colon and in the descending colon with fluid in the sigmoid colon and rectal region consistent with diarrheal illness. There is no lymphadenopathy, inflammation, or free fluid observed. In the pelvis, the appendix appears small without surrounding inflammation. No inflammation around the cecum or terminal ileum or sigmoid colon. No stones in the distal ureters or bladder. Rectal wall thickness is normal for degree of distention. No free fluid or mass in the pelvis. Uterus or prostate appears normal. No inguinal or lower pelvic adenopathy. Coronal and sagittal reformatted images confirm the findings. Spleen is enlarged measuring 13.7 cm in length. IMPRESSION: Fluid-filled prominent small bowel and colon suggesting diarrheal illness. See above. This exam was performed according to our departmental dose-optimization program, which includes automated exposure control, adjustment of the mA and/or kV according to patient size and/or use of iterative reconstruction technique. Total DLP equals 3273.62 mGycm. Electronically signed by: Tucker Tony MD 09/22/2019 2:23 PM CDT
--- NOTE | 2019-09-22 15:20 | HP ---
SUPERVISING PHYSICIAN: Karin Garza MD CHIEF COMPLAINT: Nausea and vomiting. 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 She has had problems with this pain in the shoulder for the past two weeks. She actually talked to Dr[facility] and received some muscle relaxers for that shoulder. It did not help much. She went to see her son in [place] on Friday for Mother's Day and complained of the pain in that left shoulder at that time. She had not had any issues other than she just did not feel like eating much. She woke up Friday morning with some abdominal distress with some nausea. Later in the day, it dissipated. On Friday, she felt okay as well, but she just did not have an appetite. That evening, she started having nausea and vomiting. She did not have any diarrhea at that time, but on Friday evening, diarrhea started. She had actually called EMS at one point and they saw her and she decided not to come to the Emergency Room. 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 In the ER, her vital signs were temperature 96.8, heart rate 93 which did go up to 96 beats per minute, blood pressure 129/78, respiratory rate 24. Her O2 sat was 97% on room air. Lab studies were done. WBCs were 2.8 with hemoglobin 16.2, hematocrit 48.5. She had 13 bands. Sodium was 136, potassium 3.2, chloride 101, carbon dioxide 24, BUN 35, creatinine 1.47. Baseline creatinine is 0.9. Lactic acid 2.3, bilirubin 1.8, AST 64, TSH 6.84, lipase 44. I was called for hospital admission. Shortly after I was called, her temperature went up to 100.3. Due to her temperature as well as her shortness of breath on admission with an elevated respiratory rate, she was tested for COVID-19. She was given fluids in the ER as well as some Zofran and was admitted to the Floor in stable condition. Her followup lactic acid was again high at 2.3. PAST MEDICAL HISTORY: 1. Type 2 diabetes mellitus. 2. Hypothyroidism. 3. Insomnia. 4. Hypertension. 5. Osteoarthritis. PAST SURGICAL HISTORY: 1. Hysterectomy. 2. Tubal ligation. 3. Cholecystectomy. 4. 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 OUTPATIENT MEDICATIONS: Per the EMR and awaiting verification. ALLERGIES: CODEINE, SULFA. FAMILY HISTORY: Noncontributory. SOCIAL HISTORY: She has two children. She lives in [place]. She has no history of tobacco, ETOH or illicit drug use. REVIEW OF SYSTEMS: GENERAL: Positive for fatigue and fever. Negative for weight changes. HEENT: Negative for sinus symptoms, ear pain, vision changes or sore throat. RESPIRATORY: Positive for shortness of breath. Negative for wheezing, coughing. CARDIAC: Negative for chest pain, palpitations or tachycardia. GASTROINTESTINAL: As per history of present illness. GENITOURINARY: Negative for hematuria, dysuria or polyuria. MUSCULOSKELETAL: Negative for arthralgias, myalgias. SKIN: Negative for lesions or rashes. NEUROLOGIC: Negative for headache, dizziness or seizures. PHYSICAL EXAMINATION: VITAL SIGNS: Temperature 99.6, heart rate 81, blood pressure 104/63, respiratory rate 18, O2 saturation 94% on room air. GENERAL: This is a 69-year-old female the patient who is lying in her hospital bed. She is in no acute distress. HEENT: Normocephalic, atraumatic. Pupils are equal and reactive. Oropharynx is clear. NECK: Supple without mass. RESPIRATORY: Essentially clear to auscultation bilaterally. CHEST: There is equal rise and fall of the chest with inspiration and expiration. CARDIOVASCULAR: Regular rate and rhythm. GASTROINTESTINAL: Abdomen is soft, nondistended. She has mild generalized abdominal pain. There is no guarding or rebound tenderness. Bowel sounds are somewhat hypoactive. BACK: Deferred. NEUROLOGIC: Awake, alert and oriented times three. Cranial nerves II-XII are grossly intact as tested. SKIN: Warm and dry. LABORATORY: Labs are as per history of present illness. RADIOLOGY: Her abdominopelvic CT shows fluid-filled prominent small bowel and colon suggesting diarrheal illness. Her chest x-ray shows no radiographic evidence of acute cardiopulmonary disease. Her head CT shows no hemorrhage, no mass effect, no midline shift, minimal bilateral periventricular low-density symmetrical and stable. No abnormal radiodense materials in the brain parenchyma. Vascular calcifications anterior circulation, physiologic calcifications in pineal gland and choroid plexus. No effacement or displacement of the ventricles, CSF spaces, or subdural spaces. No extra axial fluid collection or hemorrhage. No gross abnormalities of the bony calvarium. Included paranasal sinuses and mastoid air cells are well-aerated. Lumbar CT is negative for fracture or traumatic subluxation. Cervical spine CT shows normal bone density, no compression type vertebral body fractures. No perched or locked facets. No posttraumatic spondylolisthesis. Lateral elements and posterior elements show no sign of fracture or displacement. Chronic joint arthrosis and cervical disc space spondylosis as noted. All other labs and films have been reviewed via the EMR. IMPRESSION: 1. Sepsis secondary to gastroenteritis with admitting WBCs of 2.8 with 13 bands, temperature of 100.3, heart rate 96, lactic acid 2.3 and repeat lactic acid 2.3 with a respiratory rate of 24. 2. Nausea, vomiting and diarrhea with dehydration secondary to #1. 3. Left shoulder pain secondary to muscle strain. 4. Acute renal failure with an admitting creatinine of 1.47 and her baseline creatinine of 0.9. 5. High risk for COVID-19 due to her age, comorbidities and elevated temperature. 6. Diabetes mellitus, type 2. 7. Hypothyroidism. 8. Hypertension. 9. Degenerative joint disease. PLAN: The patient has been admitted to the hospital. She has been put on bowel rest as well as Flagyl and Levaquin due to her sepsis. I will talk to Dr. Carrera in the morning in consult. I ordered stool studies as well as followup lab in the morning. She will be NPO with IV fluids. I will give her Lovenox for DVT prophylaxis as well as a PPI for ulcer prophylaxis. Her home medications will be on hold for right now. I will do an AM abdominal x-ray. I have also give her some IV muscle relaxers as well as 50 mg of Toradol IV for her shoulder pain. I will only give her three doses of that due to her kidney function. We will continue to monitor the patient closely and follow as needed. #[id number] MTDD
[2019-09-22] MEDS ORDERED: ACETAMINOPHEN 500 MG TAB PO ONE (15:35)
[2019-09-22] MEDS ORDERED: ALBUTEROL SULFATE 2.5 MG/3 ML VIAL NEB PRN (16:12)
[2019-09-22] MEDS ORDERED: ONDANSETRON INJ 4 MG/2 ML VIAL IV PRN (16:12)
[2019-09-22] MEDS ORDERED: SODIUM CHLORIDE 0.9% (FLUSH) 10 ML SYG IV PRN (16:12)
[2019-09-22] MEDS ORDERED: GLUCAGON INJ 1 MG VIAL SUBCU PRN (16:28)
[2019-09-22] MEDS ORDERED: DEXTROSE 50% 25 GM/50 ML SYG IV PRN (16:28)
[2019-09-22] MEDS ORDERED: IV SET AND CAP CHANGE INJ INJ SCH (16:30)
[2019-09-22] MEDS ORDERED: metroNIDAZOLE IV PREMIX 500MG 100 ML IVPB ONE ×2 (18:10→23:14)
[2019-09-22] MEDS ORDERED: levoFLOXacin 500MG IV 100 ML IVPB ONE (18:10)
[2019-09-22] MEDS: levoFLOXacin 500MG IV 500 MG in PREMIX BAG 1 BAG IVPB SCH (18:18)
[2019-09-22] MEDS: KCL 20MEQ/D5 1/2NS 1,000 ML IVS PRN (18:18)
[2019-09-22] MEDS: INSULIN LISPRO 100 UNITS/ML PEN SUBCU SCH (18:19)
[2019-09-22] MEDS: metroNIDAZOLE IV PREMIX 500MG 500 MG in PREMIX BAG 1 BAG IVPB SCH (18:47)
[2019-09-22] MEDS: IPRATROPIUM/ALBUTEROL 3 ML VIAL INH SCH (19:40)
[2019-09-22] MEDS ORDERED: ORPHENADRINE CITRATE 30 MG/ML AMP IV PRN (19:59)
[2019-09-22] MEDS ORDERED: ACETAMINOPHEN IV 1000MG 1,000 MG in PREMIX BOTTLE 1 BOTTLE IVPB PRN (20:02)
[2019-09-22] MEDS: KETOROLAC TROMETHAMINE INJ 30 MG/ML VIAL IV SCH (20:35)
[2019-09-22] MEDS: SODIUM CHLORIDE 0.9% (FLUSH) 10 ML SYG IV SCH (21:14)
[2019-09-23] MEDS: INSULIN LISPRO 100 UNITS/ML PEN SUBCU SCH ×4 (00:11→19:01)
[2019-09-23] MEDS: metroNIDAZOLE IV PREMIX 500MG 500 MG in PREMIX BAG 1 BAG IVPB SCH ×3 (01:49→18:57)
[2019-09-23] MEDS: KETOROLAC TROMETHAMINE INJ 30 MG/ML VIAL IV SCH ×2 (04:05→12:05)
[2019-09-23] MEDS: KCL 20MEQ/D5 1/2NS 1,000 ML IVS PRN ×2 (04:18→17:05)
[2019-09-23] MEDS: PANTOPRAZOLE SODIUM IV 40 MG VIAL IV SCH (06:21)
--- NOTE | 2019-09-23 07:17 | RAD ---
EXAM DESCRIPTION: Abdomen Flat Upright CLINICAL HISTORY: 69 years Female, gastritis COMPARISON: None. FINDINGS: Supine and upright views of the abdomen demonstrate clear lung bases and no evidence of free abdominal air. Very little abdominal bowel gas is present and predominantly within the colon. A distinct marked enlargement or fluid-filled stomach is not identified. Mild degenerative changes at the lumbosacral junction noted. Overall image quality is degraded by the patient's large body habitus. Mild hip degenerative arthropathy noted. IMPRESSION: Essentially normal abdomen two views. Electronically signed by: Eben Voss MD 09/23/2019 7:15 AM CDT
[2019-09-23] MEDS: SODIUM CHLORIDE 0.9% (FLUSH) 10 ML SYG IV SCH ×2 (09:00→20:34)
[2019-09-23] MEDS ORDERED: metroNIDAZOLE IV PREMIX 500MG 100 ML IVPB ONE ×3 (10:31→19:40)
[2019-09-23] MEDS: IPRATROPIUM/ALBUTEROL 3 ML VIAL INH SCH ×4 (12:45→20:30)
[2019-09-23] MEDS ORDERED: POTASSIUM CHLORIDE 20 MEQ TAB PO ONE (13:00)
[2019-09-23] MEDS ORDERED: MAGNESIUM SULFATE PREMIX 2GM 2 GM in PREMIX BAG 1 BAG IVPB ONE (13:00)
[2019-09-23] MEDS: VANCOMYCIN ORAL LIQUID 2,000 MG/80 ML BOTTLE PO SCH ×3 (13:45→23:55)
[2019-09-23] MEDS ORDERED: MAGNESIUM SULFATE PREMIX 2GM 50 ML IVPB ONE (14:22)
--- NOTE | 2019-09-23 16:45 | RAD ---
EXAM DESCRIPTION: Chest,1 View CLINICAL HISTORY: Shortness of breath COMPARISON: Chest radiograph dated September 22, 2019 TECHNIQUE: 1 view radiograph of the chest FINDINGS: Cardiac silhouette shows normal heart size. Pulmonary vascularity is within normal limits. Lungs show no confluent infiltrates. No pleural effusion. No pneumothorax. No acute osseous abnormality. IMPRESSION: No acute cardiopulmonary process. Electronically signed by: Dane Smith MD 09/23/2019 4:43 PM CDT
--- NOTE | 2019-09-23 16:49 | RAD ---
EXAM DESCRIPTION: Shoulder,Left 2 or More Views CLINICAL HISTORY: shoulder pain COMPARISON: Chest radiograph dated September 22, 2019. TECHNIQUE: Two views of the left shoulder. FINDINGS: There is good internal and external rotation. No acute displaced fracture or dislocation. Minimal degenerative changes of the left glenohumeral joint. Left acromioclavicular joint is maintained. Included lung myers are clear. No radiopaque foreign body. IMPRESSION: 1. No acute displaced fracture or dislocation of the left shoulder. 2. Minimal degenerative changes of the left glenohumeral joint. Electronically signed by: Dane Smith MD 09/23/2019 4:47 PM CDT
[2019-09-23] MEDS ORDERED: POTASSIUM CHLORIDE 20 MEQ TAB ONE (17:01)
[2019-09-23] MEDS ORDERED: levoFLOXacin 500MG IV 100 ML IVPB ONE (17:02)
[2019-09-23] MEDS: levoFLOXacin 500MG IV 500 MG in PREMIX BAG 1 BAG IVPB SCH (17:05)
--- NOTE | 2019-09-23 17:30 | PN ---
SUPERVISING PHYSICIAN: Cain Garza MD DATE: 09/23/19 SUBJECTIVE: The patient is lying in bed. She says she has been a little confused today but her diarrhea is "driving me crazy." Otherwise, she denies any nausea or vomiting. She did tolerate her clear liquids without any problems. We discussed her having C-difficile antigen. OBJECTIVE: VITAL SIGNS: Temperature 97.8, heart rate 80, blood pressure 118/76, respiratory rate 16, oxygen saturation 95% on room air. RESPIRATORY: Essentially clear to auscultation bilaterally. CARDIAC: Regular rate and rhythm. ABDOMEN: Soft, nondistended, is diffusely tender but there is no rebound tenderness or guarding. NEUROLOGIC: She is awake, alert, and oriented x3. LABORATORY: WBC 5.4 with hemoglobin 12.9, hematocrit 38.5. Platelet count 77,000, she has 9 bands. Potassium 3.2, BUN 41, creatinine 1.53, glucose running between 144 and 160. Lactic acid 1.4. Magnesium 1.4, calcium 7.5. Stool for occult blood is positive. C-difficile positive for the antigen, negative for toxin. Preliminary blood cultures showed no growth. Stool culture is pending. Abdominal x-ray shows essentially normal abdominal 2-view. Chest x-ray shows no acute cardiopulmonary processes. All other labs and films have been reviewed via the EMR. ASSESSMENT: 1. Sepsis secondary to gastroenteritis with admitting WBCs of 2.8 with 13 bands, temperature of 100.3, heart rate 96, lactic acid 2.3 and repeat lactic acid 2.3 with a respiratory rate of 24. 2. Nausea, vomiting and diarrhea with dehydration secondary to #1. 3. Left shoulder pain secondary to muscle strain. 4. Thrombocytopenia. 5. Diarrhea that is C-difficile positive for the antigen, negative for toxin. 6. Acute renal failure with an admitting creatinine of 1.47 and her baseline creatinine of 0.9. 7. High risk for COVID-19 due to her age, comorbidities and elevated temperature. 8. Diabetes mellitus, type 2. 9. Hypothyroidism. 10. Hypertension. 11. Degenerative joint disease. PLAN: We will continue present supportive care. I have advanced her diet and she is tolerating her clear liquids for right now. Tomorrow, she may be able to go to a full liquid. Continue on her antibiotics, Flagyl and Levaquin as previously ordered. I have ordered some oral vancomycin for C-diff. I will decrease her IV fluids if she tolerates her p.o. fluids. At her hospital followup, it is recommended that she have a full hematology workup due to her thrombocytopenia. I have not consulted Dr. Carrera as yet due to her being in isolation and will await the COVID-19 results. The diarrhea is still continued and she may at some point need some antidiarrheal medication but that can be discussed with Dr. Carrera tomorrow or the next day. We will continue to monitor closely and follow as needed. [facility][id number] [facility]
[2019-09-23] MEDS ORDERED: LEVOTHYROXINE SODIUM 0.075 MG TAB ONE (19:39)
[2019-09-23] MEDS: ENOXAPARIN SODIUM 40 MG/0.4 ML SYG SUBCU SCH (20:33)
[2019-09-23] MEDS: traZODone HCL 50 MG TAB PO SCH (20:33)
[2019-09-23] MEDS: DIPHENOXYLATE HCL/ATROPINE 2.5 MG TAB PO PRN (22:39)
[2019-09-24] MEDS: INSULIN LISPRO 100 UNITS/ML PEN SUBCU SCH ×5 (00:10→21:12)
[2019-09-24] MEDS: metroNIDAZOLE IV PREMIX 500MG 500 MG in PREMIX BAG 1 BAG IVPB SCH ×3 (01:43→17:16)
[2019-09-24] MEDS: KCL 20MEQ/D5 1/2NS 1,000 ML IVS PRN (04:03)
[2019-09-24] MEDS: VANCOMYCIN ORAL LIQUID 2,000 MG/80 ML BOTTLE PO SCH ×4 (05:49→23:57)
[2019-09-24] MEDS: PANTOPRAZOLE SODIUM IV 40 MG VIAL IV SCH (06:20)
[2019-09-24] MEDS: LEVOTHYROXINE SODIUM 0.075 MG TAB PO SCH (06:21)
[2019-09-24] MEDS ORDERED: metroNIDAZOLE IV PREMIX 500MG 100 ML IVPB ONE ×2 (06:57→17:07)
[2019-09-24] MEDS ORDERED: LOSARTAN POTASSIUM 25 MG TAB ONE (06:57)
[2019-09-24] MEDS: IPRATROPIUM/ALBUTEROL 3 ML VIAL INH SCH (08:31)
[2019-09-24] MEDS: DIPHENOXYLATE HCL/ATROPINE 2.5 MG TAB PO PRN (08:42)
[2019-09-24] MEDS: LOSARTAN POTASSIUM 25 MG TAB PO SCH (08:42)
[2019-09-24] MEDS: SODIUM CHLORIDE 0.9% (FLUSH) 10 ML SYG IV SCH ×2 (08:43→21:02)
[2019-09-24] MEDS ORDERED: levoFLOXacin 500MG IV 100 ML IVPB ONE (16:15)
[2019-09-24] MEDS: levoFLOXacin 500MG IV 500 MG in PREMIX BAG 1 BAG IVPB SCH (16:26)
--- NOTE | 2019-09-24 18:49 | PN ---
SUPERVISING PHYSICIAN: Cain Garza MD DATE: 09/24/19 SUBJECTIVE: The patient is sitting in the chair. She feels fairly well today. She has not had any confusion and no nausea or vomiting and says her diarrhea has significantly slowed. OBJECTIVE: VITAL SIGNS: Temperature 97.8, pulse 67, blood pressure 125/71, respirations 14, oxygen saturation 97% on room air. GENERAL: The patient is resting comfortably, does not appear to be in any acute distress. CHEST: Lung sounds clear to auscultation bilaterally. HEART: Regular rate and rhythm. ABDOMEN: Soft, non-tender, positive bowel sounds. NEUROLOGICAL: She is alert and oriented x 3. LABORATORY: White count 4, 600, hemoglobin 12.4, hematocrit 37.0. RBC indices indicate a macrocytosis, platelet count is up to 78,000, differential shows resolving left shift and no bands, today. Chemistries: Normal electrolytes with BUN 26, creatinine down to 1.32, blood sugar ranging between 144 and 204. Liver functions all within normal limits. C-difficile by toxin by PCR pending.. MICROBIOLOGY: Stool leukocytes were positive. C-difficile A and B done 2 days ago again showed positive for antigen, negative for toxin. Blood cultures remain negative at 48 hours. RADIOLOGY: No additional radiographic studies today. ASSESSMENT: 1. Sepsis secondary to gastritis is with associated C-difficile colitis with patient showing good response to treatment. 2. Nausea, vomiting and diarrhea with dehydration secondary to #1, resolving. 3. Thrombocytopenia, improving. 4. Left shoulder pain secondary to muscle strain, stable. 5. Clostridium difficile colitis with associated diarrhea, etiology uncertain, on oral vancomycin. 6. Acute renal failure showing returned to baseline after fluids, likely more prerenal azotemia. 7. High risk for COVID-19 with high comorbidities and temperature on admission in the presence of sepsis with testing pending. 8. Diabetes mellitus, type 2. 9. Hypothyroidism. 10. Hypertension. 11. Degenerative joint disease. PLAN: Dr. Carrera has seen the patient in consultation and recommends continuing antibiotics with Levaquin and Flagyl and oral vancomycin. We have advanced her diet to full liquid diet. I have saline-locked her as she is taking adequate oral intake. She is showing to have stable vital signs. We will await further evaluation in the morning, with repeat labs with Dr. Carrera for recommendations at this point. I anticipate discharge in the next 2 or 3 days, possibly tomorrow. Until the, we will continue to monitor and treat as needed. #[id number] [facility]
[2019-09-24] MEDS: traZODone HCL 50 MG TAB PO SCH (20:49)
[2019-09-24] MEDS: ENOXAPARIN SODIUM 40 MG/0.4 ML SYG SUBCU SCH (21:02)
[2019-09-25] MEDS ORDERED: metroNIDAZOLE IV PREMIX 500MG 100 ML IVPB ONE ×2 (01:41→09:12)
[2019-09-25] MEDS: metroNIDAZOLE IV PREMIX 500MG 500 MG in PREMIX BAG 1 BAG IVPB SCH ×2 (01:42→09:14)
[2019-09-25] MEDS: PANTOPRAZOLE SODIUM IV 40 MG VIAL IV SCH (06:30)
[2019-09-25] MEDS: LEVOTHYROXINE SODIUM 0.075 MG TAB PO SCH (06:30)
[2019-09-25] MEDS: INSULIN LISPRO 100 UNITS/ML PEN SUBCU SCH ×2 (07:09→11:22)
[2019-09-25] MEDS: VANCOMYCIN ORAL LIQUID 2,000 MG/80 ML BOTTLE PO SCH ×2 (08:19→11:19)
[2019-09-25] MEDS ORDERED: ASPIRIN (ENTERIC COATED) 81 MG TAB PO SCH (09:00)
[2019-09-25] MEDS: LOSARTAN POTASSIUM 25 MG TAB PO SCH (09:09)
[2019-09-25] MEDS: SODIUM CHLORIDE 0.9% (FLUSH) 10 ML SYG IV SCH (09:10)
[2019-09-25 11:28] VITALS: BP 125/74; TEMP 97.7; O2SAT 97
--- NOTE | 2019-09-27 12:02 | DS ---
SUPERVISING PHYSICIAN: Karin Garza MD ADMISSION DIAGNOSIS: 1. Sepsis secondary to gastroenteritis with admitting WBCs of 2.8 with 13 bands, temperature of 100.3, heart rate 96, lactic acid 2.3 and repeat lactic acid 2.3 with a respiratory rate of 24. 2. Nausea, vomiting and diarrhea with dehydration secondary to #1. 3. Left shoulder pain secondary to muscle strain. 4. Acute renal failure with an admitting creatinine of 1.47 and her baseline creatinine of 0.9. 5. High risk for COVID-19 due to her age, comorbidities and elevated temperature. 6. Diabetes mellitus, type 2. 7. Hypothyroidism. 8. Hypertension. 9. Degenerative joint disease. DISCHARGE DIAGNOSIS: 1. Sepsis secondary to gastritis is with associated C-difficile colitis with patient showing good response to treatment. 2. Nausea, vomiting and diarrhea with dehydration secondary to #1, resolving. 3. Thrombocytopenia, improving. 4. Left shoulder pain secondary to muscle strain, stable. 5. Clostridium difficile colitis with associated diarrhea, etiology uncertain, on oral vancomycin. 6. Acute renal failure showing returned to baseline after fluids, likely more prerenal azotemia. 7. High risk for COVID-19 with high comorbidities and temperature on admission in the presence of sepsis with testing pending. 8. Diabetes mellitus, type 2. 9. Hypothyroidism. 10. Hypertension. 11. Degenerative joint disease. 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 She has had problems with this pain in the shoulder for the past two weeks. She actually talked [facility] and received some muscle relaxers for that shoulder. It did not help much. She went to see her son in [place] on Friday for Mother's Day and complained of the pain in that left shoulder at that time. She had not had any issues other than she just did not feel like eating much. She woke up Friday morning with some abdominal distress with some nausea. Later in the day, it dissipated. On Friday, she felt okay as well, but she just did not have an appetite. That evening, she started having nausea and vomiting. She did not have any diarrhea at that time, but on Friday evening, diarrhea started. She had actually called EMS at one point and they saw her and she decided not to come to the Emergency Room. 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 In the ER, her vital signs were temperature 96.8, heart rate 93 which did go up to 96 beats per minute, blood pressure 129/78, respiratory rate 24. Her O2 sat was 97% on room air. Lab studies were done. WBCs were 2.8 with hemoglobin 16.2, hematocrit 48.5. She had 13 bands. Sodium was 136, potassium 3.2, chloride 101, carbon dioxide 24, BUN 35, creatinine 1.47. Baseline creatinine is 0.9. Lactic acid 2.3, bilirubin 1.8, AST 64, TSH 6.84, lipase 44. I was called for hospital admission. Shortly after I was called, her temperature went up to 100.3. Due to her temperature as well as her shortness of breath on admission with an elevated respiratory rate, she was tested for COVID-19. She was given fluids in the ER as well as some Zofran and was admitted to the Floor in stable condition. Her followup lactic acid was again high at 2.3. LABORATORY: White count at discharge was 4,600, hemoglobin 12.4, hematocrit 37.0. She did show a macrocytosis on RBC indices with MCV 101.7 and MCH 34. Platelet count 78. Differential did show a left shift with bandemia on admission with initially 13% bands. This resolved as well as the left shift prior to discharge. Chemistries on discharge showed normal creatinine 1.1, BUN 17. Electrolytes are basically within normal limits, just slightly elevated chloride at 114. Magnesium 8.6. Blood sugars ranged between 141 and 207. Urinalysis showed initial moderate amount of blood, trace leukocyte esterase, 5 to 10 RBCs, 1+ bacteria, 3 to 5 epithelials. She had on occult blood that was positive. C. difficile toxin by PCR was detected in one stool. MICROBIOLOGY: COVID-19 testing was negative. Stool cultures showed gram positive barry only recovered, no normal gram negative barry, Salmonella, shigella, Campylobacter or pseudomonas recovered. Stool leukocytes were positive. C. difficile was positive for antigen, negative for toxin, but positive for toxin by PCR. RADIOLOGY: Abdominopelvic CT showed fluid-filled prominent small bowel suggesting diarrheal illness. Please see that report for details. She had CT of lumbar spine and cervical spine which were negative for acute fracture or subluxations on both imaging studies. Chest x-ray per radiologic interpretation showed no radiographic evidence of acute cardiopulmonary disease. CT of the head without contrast was without any acute findings. X-ray of the left shoulder showed no acute displaced fracture or dislocation of the left shoulder, just degenerative changes of the left glenohumeral joint. She also had additional abdominal x-rays showing essentially normal abdomen, two views. Chest x-ray on 09/23/19 showed no acute cardiopulmonary process. 12-lead EKG showed sinus rhythm at 93 with no ischemic changes. HOSPITAL COURSE: Ms. Wheeler was admitted for nausea, vomiting and diarrhea caused from gastritis with C. difficile toxin A and B and antigen. She was started on treatment with Flagyl, Levaquin and oral vancomycin. She was given IV fluids. She showed good improvement and tolerating a diet. She was found to be negative with regards to COVID-19 testing. She was tolerating a diet, ambulating and had no recurrence of symptoms. The diarrhea had essentially stopped with the initiation of oral vancomycin and the patient was clinically improved. She was seen in consultation by Dr. Carrera. Please see his notes. After discussion with Dr. Carrera, there were no acute findings other than what he was felt was confirmed and being treated for acute C. difficile colitis. DISCHARGE ASSESSMENT: VITAL SIGNS: On day of discharge, the patient was stable with vital signs showing her to be afebrile with temperature 97.7, pulse 76, blood pressure 125/74, respirations 16, saturation 97% on room air. GENERAL: The patient was resting comfortably, alert, not in any acute distress. CHEST: Lungs clear to auscultation. HEART: Regular rate and rhythm. ABDOMEN: Soft, nontender, positive bowel sounds. EXTREMITIES: No edema. NEUROLOGIC: Alert and oriented x3. PLAN: Ms. Wheeler was discharged on 09/25/19 with instructions to followup with Dr. Garza in 7 days. She was to call his office on Friday to establish an appointment. She will need probably to have a scope done at some point as her last colonoscopy I believe was 6 or 7 years previously. She was discharged with continuation of antibiotics to include oral Flagyl for a total of 10 days of treatment as well as oral vancomycin 250 mg. She was given a dose of 96 hours on discharge and will return to the hospital on Friday for continuation dosages to continue treatment for a total course of 10 days. She was encouraged to slowly advance her diet as tolerated and help reestablish normal barry with probiotic as well as yogurt. She is to increase her activity as tolerated and push fluids to prevent dehydration. She was given warnings to return to the Emergency Room or call Dr. Garza's office should she have return of any concerning symptoms. She was not treated for urinary tract infection as there was no evidence of that. Again, she positive for C. difficile and had not been on any previous antibiotics. Again, there was no normal barry seen on her culture results. We did discuss the possibility that she may have had a viral infection prior to the C. difficile episode as there was no reason in the patient's history to account for a C. difficile infection. MEDICATIONS ON DISCHARGE: 1. Vancomycin oral 250 mg q.6h. for a total of 10 day treatment. Again, she was to report to the hospital on 09/29/19 to get additional doses to keep at home until completion of 10-day course. 2. Flagyl 500 mg q.8h., #18, no refills. All other medications as prior to hospitalization were continued. DISPOSITION: The patient was discharged home in stable condition. CONDITION ON DISCHARGE: Stable. #[id number] [facility]
== END 2019-09-25 13:33 | disposition home or self-care (01) | DRG 872 ==
LOC: ER 12:01 → OBSVTOIN 15:16 → MS 15:16
PROVIDERS: ADMIT Nurse Practitioner Acute Care; ATTEND Nurse Practitioner Family
DX: A41.9 Sepsis, unspecified organism (principal); N17.9 Acute kidney failure, unspecified; A04.72 Enterocolitis due to Clostridium difficile, not specified as recurrent; E86.0 Dehydration; E11.22 Type 2 diabetes mellitus with diabetic chronic kidney disease; N18.9 Chronic kidney disease, unspecified; E03.9 Hypothyroidism, unspecified; I12.9 Hypertensive chronic kidney disease with stage 1 through stage 4 chronic kidney disease, or unspecified chronic kidney disease; D69.6 Thrombocytopenia, unspecified; S46.912A Strain of unspecified muscle, fascia and tendon at shoulder and upper arm level, left arm, initial encounter; X58.XXXA Exposure to other specified factors, initial encounter; Y92.9 Unspecified place or not applicable; G47.00 Insomnia, unspecified; M19.90 Unspecified osteoarthritis, unspecified site; Z66 Do not resuscitate; Z88.2 Allergy status to sulfonamides; Z88.5 Allergy status to narcotic agent; Z79.82 Long term (current) use of aspirin; Z79.899 Other long term (current) drug therapy; Z79.4 Long term (current) use of insulin

== ENCOUNTER 2019-09-27 17:28 | Emergency (ER) | payer MEDICARE, OTHER ==
[2019-09-27] MEDS ORDERED: SODIUM CHLORIDE 0.9% (FLUSH) 10 ML SYG IV PRN (18:08)
[2019-09-27] MEDS ORDERED: SODIUM CHLORIDE 0.9% 1000ML 1,000 ML IVS ONE (18:08)
--- NOTE | 2019-09-27 18:57 | ED.PDOC ---
History of Present Illness - General Chief Complaint: GI Problem Stated Complaint: Nausea/vomiting/diarrhea Time Seen by Provider: 09/27/19 17:34 Information Source: patient, RN notes reviewed, Vital Signs reviewed, old records - History of Present Illness Initial Comments: This is a 69-year-old female who was just discharged home from the hospital 2 days ago. She was admitted for sepsis related to C. difficile enteritis. She was discharged home on p.o. vancomycin and p.o. Flagyl. She states the diarrhea has not completely resolved, but got worse today. She had 2-3 episodes of nonbilious nonbloody vomiting today. No fever. No abdominal pain. Review of Systems - Review of Systems Constitutional: Denies: chills, fever EENTM: Denies: ear discharge, nose congestion, throat pain Respiratory: Denies: cough, orthopnea, stridor Cardiology: Denies: edema, syncope Gastrointestinal/Abdominal: States: diarrhea, nausea, vomiting. Denies: abdominal pain, constipation Genitourinary: Denies: dysuria, hematuria Musculoskeletal: Denies: back pain, joint pain, joint swelling, muscle pain Skin: Denies: dryness, rash Neurological: Denies: headache, numbness, tingling, tremors, weakness Endocrine: States: no symptoms reported Hematologic/Lymphatic: States: no symptoms reported Past Medical History (General) - Patient Medical History Hx Seizures: No Hx Stroke: No Hx Dementia: No Hx Asthma: No Hx of COPD: No Hx Cardiac Disorders: No Hx Congestive Heart Failure: No Hx Pacemaker: No Hx Hypertension: Yes Hx Thyroid Disease: Yes Hx Diabetes: Yes - dx 30 years Hx Gastroesophageal Reflux: No Hx Renal Disease: Yes - Chronic renal disease Hx Cancer: No Hx of HIV: No Hx Hepatitis C: No Hx MRSA: No - Vaccination History Hx Tetanus, Diphtheria Vaccination: Yes Hx Influenza Vaccination: Yes Hx Pneumococcal Vaccination: Yes - Social History Hx Tobacco Use: No Hx Alcohol Use: No Hx Substance Use: No Hx Substance Use Treatment: No Hx Depression: No Hx Physical Abuse: No Hx Emotional Abuse: No Family Medical History - Family History Mother Family History: Unknown Hx Family Stroke: Yes - mom Hx Cardiac Disease: Yes - dad Hx Family Diabetes: Yes - son Hx Family Cancer: Yes - breast-sister Physical Exam - Physical Exam General Appearance: Alert, Comfortable Eyes, Ears, Nose, Throat Exam: PERRL/EOMI, normal ENT inspection, pharynx normal Neck: non-tender, full range of motion, supple, normal inspection Respiratory: chest non-tender, lungs clear, normal breath sounds, no respiratory distress, no accessory muscle use Cardiovascular/Chest: normal peripheral pulses, regular rate, rhythm, no edema, no gallop, no JVD, no murmur Peripheral Pulses: No deficit Gastrointestinal/Abdominal: normal bowel sounds, non tender, soft Back Exam: no CVA tenderness, no vertebral tenderness Extremity: non-tender, normal inspection Neurologic: no motor/sensory deficits, alert, normal mood/affect, oriented x 3 Skin Exam: normal color, warm/dry Progress - Progress Progress: 09/27/19 19:47 Rechecked. Multiple attempts to establish IV access unsuccessful. Patient states she does not want to make any further attempts at IV access. I reviewed labs and discussed that there is no clear indication to admit her to the hospital at this time, creatinine improving. White blood cell count normal. She states she would just prefer to go home and treat her symptoms at this time. I recommended she follow-up with her PCP in 2 to 3 days for recheck. Will discharge home with Lomotil and Zofran p.o. Strict warnings given to return the emergency room for abdominal pain, fever, blood in stool, intractable vomiting, changes in mental status, or any other concerns. DDX: Dehydration, acute kidney injury/renal failure, electrolyte disorder, C. difficile colitis Vance Gramajo DO [facility] #[id number] - Results/Orders Results/Orders: 09/27/19 18:08 IV Care:Saline Lock per Protoc QSHIFT Sodium Chloride 0.9% (Flush) [Saline Flush Syringe] 10 ml IV PRN PRN URINALYSIS Stat 09/27/19 18:15 EKG STAT 09/27/19 19:25 Isolation:Contact .ONCE Laboratory Results - last 24 hr 09/27/19 09/27/19 09/27/19 18:34 18:34 18:34 WBC 7.6 RBC 4.00 L Hgb 13.7 Hct 40.3 MCV 100.8 H MCH 34.2 H MCHC 33.9 RDW 14.3 Plt Count 105 L MPV 8.0 Absolute Neuts (auto) 6.90 H Absolute Lymphs (auto) 0.40 L Absolute Monos (auto) 0.30 Absolute Eos (auto) 0.00 Absolute Basos (auto) 0.00 Neutrophils % 90.1 H Lymphocytes % 5.3 L Monocytes % 4.2 Eosinophils % 0.1 L Basophils % 0.3 Sodium 135 Potassium 3.9 Chloride 108 Carbon Dioxide 19 L Anion Gap 11.9 L BUN 20 H Creatinine 1.28 BUN/Creatinine Ratio 15.6 Random Glucose 210 H D Serum Osmolality 278.9 Calcium 8.0 L Phosphorus 3.3 Magnesium 1.3 L Total Bilirubin 1.6 H Direct Bilirubin 0.3 H Indirect Bilirubin 1.3 H AST 35 ALT 26 Alkaline Phosphatase 71 Serum Total Protein 5.9 L Albumin 2.8 L Lipase 90 H Departure - Departure Clinical Impression: Nausea vomiting and diarrhea, C. difficile enteritis Disposition: Discharge to Home or Self Care Condition: Good Departure Forms: ED Discharge - Pt. Copy, Patient Portal Self Enrollment Instructions: [place] Diet, Clostridioides difficile Diet: bland diet Activity: increase activity as tolerated Referrals: SARBJIT BORDEN MD [Primary Care Provider] - 1-2 Days Prescriptions: Diphenoxylate/Atropine [Lomotil Tab] 2.5 - 5 mg PO Q8H PRN #20 tab PRN Reason: Diarrhea Ondansetron Odt [Zofran ODT] 8 mg PO Q8H PRN #12 tab PRN Reason: Nausea/Vomiting Home Medications: Ambulatory Orders Glipizide 10 mg PO BID 12/14/13 Hydrochlorothiazide 12.5 mg PO DAILY 12/14/13 RX: Aspirin [Aspirin Adult Low Dose] 81 mg PO DAILY 06/24/16 RX: Calcium 600 mg PO DAILY 06/24/16 RX: Losartan Potassium 50 mg PO DAILY 06/24/16 RX: Multiple Vitamins W/ Minerals [Centrum Silver] 1 tab PO DAILY 06/24/16 RX: Insulin Glargine [Toujeo Solostar] 40 unit SC BEDTIME 09/22/19 RX: Insulin Regular (Human) [Novolin R] 16 unit SUBCU NOON 09/22/19 RX: Insulin Regular (Human) [Novolin R] 16 units SUBCU .1600 09/22/19 RX: Insulin Regular (Human) [Novolin R] 20 unit SUBCU QAM 09/22/19 RX: Levothyroxine Sodium 75 mcg PO DAILY 09/22/19 RX: Trazodone HCl [Trazodone Hydrochloride] 50 mg PO BEDTIME 09/22/19 RX: Vancomycin Oral Liquid 250 mg PO Q6HR 6 Days #2 bottle 09/25/19 metroNIDAZOLE [Flagyl] 500 mg PO Q8H #18 tab 09/25/19 Diphenoxylate/Atropine [Lomotil Tab] 2.5 - 5 mg PO Q8H PRN #20 tab 09/27/19 Ondansetron Odt [Zofran ODT] 8 mg PO Q8H PRN #12 tab 09/27/19 Additional Instructions: Continue taking your Flagyl and vancomycin as previously prescribed. Take yogurt and probiotics as previously recommended. Return to emergency room immediately for fever, severe abdominal pain, uncontrollable vomiting, or any other concerns
[2019-09-27 20:46] VITALS: BP 124/63; TEMP 99; O2SAT 96
== END 2019-09-27 20:30 | disposition home or self-care (01) ==
LOC: ER 17:28
DX: A04.72 Enterocolitis due to Clostridium difficile, not specified as recurrent (principal); E07.9 Disorder of thyroid, unspecified; E11.22 Type 2 diabetes mellitus with diabetic chronic kidney disease; I12.9 Hypertensive chronic kidney disease with stage 1 through stage 4 chronic kidney disease, or unspecified chronic kidney disease; N18.9 Chronic kidney disease, unspecified
CPT/HCPCS: 36415; 80048; 80076; 83690; 83735; 84100; 85025; 93005; J7030

== ENCOUNTER → 2019-10-18 | Outpatient (CLI) | payer MEDICARE, OTHER | LOC: GMAE 11:26 | PROVIDERS: ATTEND Family Medicine | DX: E03.9 Hypothyroidism, unspecified (principal); I10 Essential (primary) hypertension; E11.8 Type 2 diabetes mellitus with unspecified complications ==